=== PATIENT | male | born 1950 | race Caucasian/White ===

== ENCOUNTER 2018-03-22 09:03 | Observation (INO) | payer OTHER ==
[2018-03-21 15:19] LABS: BASOPHILS # (AUTO) 0.1 (0.0-0.1); BASOPHILS % 0.7 % (0.0-1.0); EOSINOPHILS # (AUTO) 0.1 (0.0-0.4); EOSINOPHILS % 0.9 % (0.0-6.0); HEMATOCRIT 47.2 % (38.2-49.6); HEMOGLOBIN 16.2 g/dL (14.0-18.0); LYMPHOCYTES # (AUTO) 1.6 (1.0-3.2); LYMPHOCYTES % 18.3 % (18.0-39.1); MEAN CORPUSCULAR HEMOGLOBIN 28.4 pg (28-32); MEAN CORPUSCULAR HGB CONC 34.3 g/dL (31-35); MEAN CORPUSCULAR VOLUME 82.8 fL (81-99); MONOCYTES # (AUTO) 0.7 (0.2-0.8); MONOCYTES % 8.2 % (4.4-11.3); NEUTROPHILS # (AUTO) 6.2 (2.1-6.9); NEUTROPHILS % 71.6 % (38.7-80.0); PLATELET COUNT 193 x10e3/uL (140-360); RED CELL DISTRIBUTION WIDTH 13.5 % (11.7-14.4)
[2018-03-21 15:29] LABS: INR 1.04; PROTHROMBIN TIME 12.8 seconds (11.9-14.5)
[2018-03-21 15:30] LABS: PARTIAL THROMBOPLASTIN TIME 26.4 seconds (23.8-35.5)
[2018-03-21 15:33] LABS: ANION GAP 11.5 mmol/L (8-16); CREATININE, SERUM 1.56 mg/dL (0.72-1.25); POTASSIUM 4.5 mmol/L (3.5-5.1)
[2018-03-22] VITALS (14 sets, daily range): BP systolic 112–151; BP diastolic 64–95
[~2018-03-22] VITALS: Ht 172.7 cm; Wt 83.9 kg
[~2018-03-22 09:03] MED LIST: ASPIRIN81 MG PO; ATORVASTATIN CA20 MG PO; CENTRUM SILVER1 EAC3 PO; COQ-10100 MG PO; DICYCLOMINE HCL10 MG PO; FLOMAX0.4 MG PO; JANUVIA100 MG PO; LANTUS100 UNITS/ SC; METFORMIN HCL500 M2 PO; METOPROLOL SUCC50 MG PO; METOPROLOL TART50 MG PO; PANTOPRAZOLE SO20 MG PO
[2018-03-22] MEDS ORDERED: LIDOCAINE HCL 2% LOCAL 20 ML VIAL ONE (13:47)
[2018-03-22] MEDS ORDERED: SODIUM CHLORIDE 0.9% 1000ML 1,000 ML ONE (13:48)
[2018-03-22] MEDS ORDERED: IOPAMIDOL 370 MG/ML 200 ML INFUS..BTL INJ ONE ×2 (13:48→14:53)
[2018-03-22] MEDS ORDERED: HEPARIN SOD/SOD CHLORIDE 2,000 ML ONE (13:48)
[2018-03-22] MEDS ORDERED: MIDAZOLAM HCL 2 MG/2 ML VIAL ONE ×2 (14:10→14:44)
[2018-03-22] MEDS ORDERED: FENTANYL CITRATE/PF 100MCG/2 ML INJ ONE (14:11)
[2018-03-22] MEDS ORDERED: HEPARIN SOD (PORCINE) 1000 UNIT/ML 30ML ONE (14:49)
[2018-03-22] MEDS ORDERED: NITROGLYCERIN/D5W 200 MCG/ML 250 ML ONE (14:49)
[2018-03-22] MEDS ORDERED: TICAGRELOR 90 MG TABLET PO ONE (15:15)
[2018-03-22] MEDS ORDERED: ACETAMINOPHEN 325 MG TAB PO PRN (16:30)
[2018-03-22] MEDS ORDERED: MORPHINE SULFATE 2 MG/ML SYR IV PRN (16:30)
[2018-03-22] MEDS ORDERED: NITROGLYCERIN 0.4 MG SUBL SL PRN (16:30)
[2018-03-22] MEDS ORDERED: MORPHINE SULFATE 4 MG/ML SYR IV PRN (16:30)
--- NOTE | 2018-03-22 17:22 | Operative Report ---
DATE OF PROCEDURE: March 22, 2018 PROCEDURES PERFORMED 1. Conscious sedation for 45 minutes. 2. Selective coronary angiography times 2. 3. Selective graft angiography times 3. 4. Left heart catheterization. 5. Closure of the right common femoral arteriotomy site with a Vascade device. PREPROCEDURE DIAGNOSES 1. 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 2. Presence of aortocoronary bypass 3. Chest pain. 4. Abnormal noninvasive stress test. POSTPROCEDURE DIAGNOSES 1. 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 2. Presence of aortocoronary bypass 3. Chest pain. 4. Abnormal noninvasive stress test. 5. Estimated blood loss 20 mL. SPECIMENS REMOVED: None. PROCEDURE IN DETAIL: After informed consent was obtained, the patient was brought to the cardiac catheterization laboratory in a fasting, nonsedated state. Bilateral groins were prepped and draped in the usual sterile fashion. The patient received conscious sedation with fentanyl and midazolam. Using a micropuncture needle, the right common femoral artery was accessed via the modified Seldinger technique, and a 5-St Helenian sheath was placed. Next, diagnostic coronary angiography was performed using 5-St Helenian JL4 and JR4 catheters. Next, selective graft angiography was performed using the same JR4 catheter times 3. Left heart catheterization was performed using a modified angled pigtail catheter. Diagnostic imaging revealed a significant 70% to 80% stenosis of the left circumflex coronary artery extending into the obtuse marginal vessel. The saphenous vein graft that had been anastomosed to this vessel was 100% occluded. Given his findings of lateral perfusion defect on the noninvasive workup stress testing, a decision was made to perform percutaneous coronary intervention. The patient received systemic heparin for therapeutic anticoagulation. Next, the sheath was exchanged for a 6-St Helenian system. Next, the left main was cannulated with a 5-St Helenian EBU 3.75 guide catheter. After confirmation of therapeutic activated clotting time, the lesions were crossed with a Runthrough wire and predilated with a 2.5 x 12 balloon. Next, the lesion was stented with a 3 x 38 [employer] Synergy drug-eluting stent. Next, the stent was postdilated with a 3.5 noncompliant balloon. Final angiography revealed excellent results with gross LITZY-3 flow distally. There was no evidence of dissection, distal embolization or vessel perforation at the end of the case. The patient tolerated the procedure well with no immediate complications. Next, a right lower extremity peripheral runoff was performed. Next, the sheath was removed, and the arteriotomy site was closed with a Vascade device with excellent hemostasis. The patient was then transported back to his room in stable condition. COMPLICATIONS: None. PROCEDURAL FINDINGS 1. Left main coronary artery is patent without significant coronary artery disease. 2. Left anterior descending coronary artery is 100% occluded proximally. The LAD itself is filled via a patent left internal mammary graft. 3. The ramus intermedius coronary artery is small in caliber with mild diffuse disease. 4. The left circumflex coronary artery has a proximal 70% to 80% flow-limiting stenosis and a 70% distal stenosis. There is the obtuse marginal vessel that has a superior branch which is subtotally occluded. The LAD fills the subtotally occluded superior OM branch via collaterals. 5. The right coronary artery has a severe 80% proximal stenosis and is 100% occluded in its mid portion. This vessel was filled via patent flow from the saphenous vein graft. 6. There is 1 saphenous vein graft with anastomosis to the distal RCA which is patent. 7. The saphenous vein graft that had been anastomosed to the obtuse marginal system was 100% occluded. 8. The left internal mammary artery graft is patent. 9. The left ventricular end-diastolic pressure is 7 mmHg with no aortic valve gradient upon pullback. INTERVENTIONAL RESULTS: Successful percutaneous coronary intervention of the left circumflex coronary artery. Pre-PCI LITZY flow was 2. Post-PCI LITZY flow was 3. Postprocedure stenosis less than 10%. IMPRESSION AND PLAN: This 67-year-old man with severe king salmon vessel coronary artery disease was found to have an occluded saphenous vein graft to the left circumflex obtuse marginal system. The patient is now status post successful revascularization. The patient will remain on dual antiplatelet therapy and received guideline-directed medical therapy for his coronary artery disease. Job#: [id number]
[2018-03-23 00:50] VITALS: BP 138/74
[2018-03-23 04:00] VITALS: BP 148/70
[2018-03-23 05:28] VITALS: BP 148/70
[2018-03-23 06:50] LABS: BASOPHILS # (AUTO) 0.1 (0.0-0.1); BASOPHILS % 0.7 % (0.0-1.0); EOSINOPHILS # (AUTO) 0.1 (0.0-0.4); EOSINOPHILS % 1.2 % (0.0-6.0); HEMATOCRIT 44.2 % (38.2-49.6); HEMOGLOBIN 15.2 g/dL (14.0-18.0); LYMPHOCYTES # (AUTO) 1.1 (1.0-3.2); LYMPHOCYTES % 13.9 % (18.0-39.1); MEAN CORPUSCULAR HEMOGLOBIN 28.5 pg (28-32); MEAN CORPUSCULAR HGB CONC 34.4 g/dL (31-35); MEAN CORPUSCULAR VOLUME 82.8 fL (81-99); MONOCYTES # (AUTO) 0.8 (0.2-0.8); MONOCYTES % 9.8 % (4.4-11.3); NEUTROPHILS # (AUTO) 5.7 (2.1-6.9); PLATELET COUNT 164 x10e3/uL (140-360); RED BLOOD COUNT 5.34 x10e6/uL (4.3-5.7); RED CELL DISTRIBUTION WIDTH 13.6 % (11.7-14.4)
[2018-03-23 07:23] LABS: CREATININE, SERUM 1.32 mg/dL (0.72-1.25)
[2018-03-23] MEDS ORDERED: PANTOPRAZOLE SOD 40 MG TABEC PO SCH (07:30)
[2018-03-23 07:39] VITALS: BP 175/85
[2018-03-23] MEDS ORDERED: ASPIRIN 81 MG CHEW TAB PO SCH (09:00)
[2018-03-23] MEDS ORDERED: DICYCLOMINE HCL 10 MG CAP PO SCH (09:00)
[2018-03-23] MEDS ORDERED: MULTIVITAMINS/MINERALS TAB PO SCH (09:00)
[2018-03-23] MEDS ORDERED: METOPROLOL SUCCINATE 50 MG TAB XL PO SCH (09:00)
[2018-03-23] MEDS ORDERED: SITAGLIPTIN 100 MG TAB PO SCH (09:00)
[2018-03-23] MEDS ORDERED: TAMSULOSIN HCL 0.4 MG CAP PO SCH (09:00)
[2018-03-23] MEDS ORDERED: ATORVASTATIN 40 MG TAB PO SCH (21:00)
[2018-03-23] MEDS ORDERED: INSULIN DETEMIR 100 UNIT/ML PEN SQ SCH (21:00)
== END 2018-03-23 09:04 | disposition home or self-care (01) ==
LOC: CATH LAB 09:03 → IMCU 16:43
PROVIDERS: ADMIT Internal Medicine Cardiovascular Disease; ATTEND Internal Medicine Cardiovascular Disease
DX: I25.718 Atherosclerosis of autologous vein coronary artery bypass graft(s) with other forms of angina pectoris (principal); I25.118 Atherosclerotic heart disease of native coronary artery with other forms of angina pectoris; I25.82 Chronic total occlusion of coronary artery; Z98.61 Coronary angioplasty status; R94.39 Abnormal result of other cardiovascular function study; I10 Essential (primary) hypertension; E11.59 Type 2 diabetes mellitus with other circulatory complications; Z79.4 Long term (current) use of insulin; E78.2 Mixed hyperlipidemia; I35.0 Nonrheumatic aortic (valve) stenosis; Z87.891 Personal history of nicotine dependence; Z79.82 Long term (current) use of aspirin; Z88.8 Allergy status to other drugs, medicaments and biological substances
CPT/HCPCS: 36415 ×3; 80048; 82565; 82948 ×2; 84520; 85025 ×2; 85610; 85730; 92943; 93005 ×2; 93459; C1725; C1760; C1769; C1874; G0378 ×2; J1644; J2001; J2250; J7030; Q9967; S0164; 36140; 75710; 77002; 92920; C9600

== ENCOUNTER 2019-01-26 13:49 | Observation (INO) | payer BC ==
[2019-01-25 12:02] LABS: BASOPHILS # (AUTO) 0.1 (0.0-0.1); BASOPHILS % 0.6 % (0.0-1.0); EOSINOPHILS % 0.5 % (0.0-6.0); HEMATOCRIT 45.5 % (38.2-49.6); HEMOGLOBIN 15.4 g/dL (14.0-18.0); LYMPHOCYTES # (AUTO) 1.2 (1.0-3.2); LYMPHOCYTES % 14.1 % (18.0-39.1); MEAN CORPUSCULAR HEMOGLOBIN 28.6 pg (28-32); MEAN CORPUSCULAR HGB CONC 33.8 g/dL (31-35); MEAN CORPUSCULAR VOLUME 84.6 fL (81-99); MONOCYTES # (AUTO) 0.7 (0.2-0.8); MONOCYTES % 7.7 % (4.4-11.3); NEUTROPHILS # (AUTO) 6.6 (2.1-6.9); NEUTROPHILS % 76.8 % (38.7-80.0); PLATELET COUNT 193 x10e3/uL (140-360); RED BLOOD COUNT 5.38 x10e6/uL (4.3-5.7); RED CELL DISTRIBUTION WIDTH 13.6 % (11.7-14.4)
[2019-01-25 12:14] LABS: INR 0.96; PROTHROMBIN TIME 13.3 seconds (11.9-14.5)
[2019-01-25 12:23] LABS: ALBUMIN 4.2 g/dL (3.5-5.0); ALBUMIN/GLOBULIN RATIO 1.6 (0.8-2.0); ANION GAP 11.3 mmol/L (8-16); CALCIUM 9.5 mg/dL (8.4-10.2); CREATININE, SERUM 1.33 mg/dL (0.72-1.25); POTASSIUM 4.3 mmol/L (3.5-5.1)
[~2019-01-26] VITALS: Ht 172.7 cm; Wt 80.7 kg
[~2019-01-26 13:49] MED LIST changes: +BRILINTA90 MG PO; +DIOVAN80 MG PO
--- NOTE | 2019-01-26 14:15 | NUR ---
1415 Received to crime lab analyst pre-op room 7. Alert and oriented x3, PERRLA, respirations even and unlabored, room air. Chance. PT/DP pulses present via doppler and marked. Cap fill brisk < 3 sec. VSS, denies pain, dysphonia noted on arrival to hospital. 20g IV started left forearm, samantha. well. FSBS 142. See pre-op note.
[2019-01-26 14:25] VITALS: BP 159/79
[2019-01-26] MEDS ORDERED: HEPARIN SOD/SOD CHLORIDE 2,000 ML ONE (16:10)
[2019-01-26] MEDS ORDERED: FENTANYL CITRATE/PF 100MCG/2 ML INJ ONE (16:10)
[2019-01-26] MEDS ORDERED: MIDAZOLAM HCL 2 MG/2 ML VIAL ONE ×2 (16:10→16:52)
[2019-01-26] MEDS ORDERED: LIDOCAINE HCL 2% LOCAL 20 ML VIAL ONE (16:10)
[2019-01-26] MEDS ORDERED: SODIUM CHLORIDE 0.9% 1000ML 1,000 ML ONE (16:11)
[2019-01-26] MEDS ORDERED: IOPAMIDOL 300MG/ML 100 ML INFUS..BTL IV ONE (16:11)
[2019-01-26] MEDS ORDERED: SODIUM CHLORIDE 0.9% 1000ML 1,000 ML IV SCH (19:30)
--- NOTE | 2019-01-26 19:40 | NUR ---
Report provided to Blair BORDEN, review of procedural findings and medications given. Patient awake and appropriate. maintains airway and room air saturations of 99-100%. No gross issues of pressure, pain, pallor or dysrhythmia. pedal pulses doppler strong x4 .IV site patent with NS 0.9% at 100ml/hr by dial-flow. patient hemodynamically stable with hemostasis left groin dressing CDI w/o s/s of bleeding. patient transferred to [facility] w/o [facility] at bedside. Blair/Cheikh performed left groin check on handoff. procedure: peripheral angio with PTCA to right AT/DP trunk Sheath puller: Megan RTr vascade deployment Meds Given Intra-Procedure Sedatives Versed - 3 mg Fentanyl - 100 mcg Anticoagulants Heparin - 8000 Units Fluids Input - 400 ml Output - 300ml Contrast Isovue 300 - 220ml Other Meds Nitro IA by
[2019-01-26 19:55] VITALS: BP 129/69
[2019-01-26 19:56] VITALS: BP 159/79
--- NOTE | 2019-02-16 00:09 | Operative Report ---
DATE OF PROCEDURE: 01/26/2019 SURGEON: Adams Cook DO PROCEDURES PERFORMED: 1. Conscious sedation 90 minutes. 2. Abdominal aortography. 3. Third-order peripheral angiography of the right lower extremity. 4. Secondary thrombectomy of the right lower extremity. 5. Percutaneous transluminal angioplasty of the peroneal artery of the right lower extremity. 6. Percutaneous transluminal angioplasty of the right anterior tibial artery. PREPROCEDURE DIAGNOSIS: Severe peripheral arterial disease with claudication. POSTPROCEDURE DIAGNOSIS: Severe peripheral arterial disease with claudication. ESTIMATED BLOOD LOSS: Less than 20 mL. SPECIMENS REMOVED: None. PROCEDURE IN DETAIL: After informed consent was obtained, the patient was brought to the cardiac catheterization laboratory in a fasting and nonsedated state. Bilateral groins were prepped and draped in the usual sterile fashion. A 2% lidocaine was entered over the left anterior groin for local anesthesia. Using micropuncture needle, right common femoral artery was accessed via the modified Seldinger technique and a 5-Czech sheath was placed. Next, diagnostic abdominal aortography was performed using Omni flush catheter. This was taken up and over the iliac bifurcation placement. Third order position and diagnostic angiography revealed significant disease in the right lower extremity. There was a 40% stenosis in the right superficial femoral artery, long diffuse 70% anterior tibial stenosis, and chronic total occlusions of the distal tibioperoneal trunk and the proximal portions of the peroneal and posterior tibial arteries. Decision was made to perform percutaneous intervention. The patient received systemic heparin for therapeutic anticoagulation. I crossed a 65 cm up-and-over sheath. Next, I crossed the anterior tibial artery with a Whisper wire and performed balloon angioplasty with a 2.25 x 220 mm balloon. Final angiography revealed excellent angioplasty results. Next with the backup support of device, I was able to cross into the peroneal vessel and performed balloon angioplasty with a 2.5 x 40 mm balloon. Multiple attempts were utilized to cross into the posterior tibial vessel without success. The sheath was exchanged for short sheath and closed with a Vascade device. The patient tolerated procedure well with no immediate complications. He was transported back to his room in stable condition. IMPRESSION AND PLAN: This is a 68-year-old gentleman, who has severe claudication of the right lower extremity, who was found to have severe triple vessel tibial disease. He underwent successful revascularization of the right anterior tibial and peroneal vessels. The patient will be brought back at a later time for pedal access and retrograde angioplasty of the posterior tibial artery. DO GHISLAINE Payne/MODL /[id number]
== END 2019-01-26 22:59 | disposition home or self-care (01) ==
LOC: CATH LAB 13:49 → IMCU 19:30
PROVIDERS: ADMIT Internal Medicine Cardiovascular Disease; ATTEND Internal Medicine Cardiovascular Disease
DX: I70.211 Atherosclerosis of native arteries of extremities with intermittent claudication, right leg (principal); I25.10 Atherosclerotic heart disease of native coronary artery without angina pectoris; Z95.1 Presence of aortocoronary bypass graft; I10 Essential (primary) hypertension; E78.2 Mixed hyperlipidemia; E11.9 Type 2 diabetes mellitus without complications; Z85.828 Personal history of other malignant neoplasm of skin; Z82.49 Family history of ischemic heart disease and other diseases of the circulatory system; Z83.3 Family history of diabetes mellitus; Z79.4 Long term (current) use of insulin
CPT/HCPCS: 36415 ×2; 37228; 37232; 75625; 75710; 80053; 82948; 85025; 85610; C1725 ×4; C1760; C1769 ×4; C1887 ×2; G0378; J2001; J2250; J7030; Q9967; 36247

== ENCOUNTER → 2019-03-01 | Day surgery (SDC) | payer BC ==
[2019-02-28 12:30] LABS: BASOPHILS # (AUTO) 0.1 (0.0-0.1); BASOPHILS % 0.6 % (0.0-1.0); EOSINOPHILS # (AUTO) 0.1 (0.0-0.4); HEMATOCRIT 43.7 % (38.2-49.6); HEMOGLOBIN 14.5 g/dL (14.0-18.0); LYMPHOCYTES # (AUTO) 0.9 (1.0-3.2); MEAN CORPUSCULAR HEMOGLOBIN 28.3 pg (28-32); MEAN CORPUSCULAR HGB CONC 33.2 g/dL (31-35); MEAN CORPUSCULAR VOLUME 85.4 fL (81-99); MONOCYTES # (AUTO) 0.6 (0.2-0.8); MONOCYTES % 7.7 % (4.4-11.3); NEUTROPHILS # (AUTO) 6.3 (2.1-6.9); NEUTROPHILS % 79.3 % (38.7-80.0); PLATELET COUNT 166 x10e3/uL (140-360); RED BLOOD COUNT 5.12 x10e6/uL (4.3-5.7); RED CELL DISTRIBUTION WIDTH 13.6 % (11.7-14.4)
[2019-02-28 12:44] LABS: INR 0.96; PROTHROMBIN TIME 13.3 seconds (11.9-14.5)
[2019-02-28 13:11] LABS: ALBUMIN/GLOBULIN RATIO 1.5 (0.8-2.0); ANION GAP 11.3 mmol/L (8-16); CREATININE, SERUM 1.28 mg/dL (0.72-1.25); POTASSIUM 4.3 mmol/L (3.5-5.1)
[~2019-03-01] VITALS: Ht 172.7 cm; Wt 83.5 kg
[2019-03-01] VITALS (10 sets, daily range): BP systolic 110–163; BP diastolic 43–77
[~2019-03-01] MED LIST changes: +FENTANYL CITRATE/PF 100MCG/2 ML INJ ONE; +HEPARIN SOD (PORCINE) 1000 UNIT/ML 30ML ONE; +HEPARIN SOD/SOD CHLORIDE 1,000 ML ONE; +HEPARIN SOD/SOD CHLORIDE 2,000 ML ONE; +IOPAMIDOL 300MG/ML 100 ML INFUS..BTL IV ONE; +LIDOCAINE HCL 2% LOCAL 20 ML VIAL ONE; +MIDAZOLAM HCL 2 MG/2 ML VIAL ONE; +NITROGLYCERIN/D5W 200 MCG/ML 250 ML ONE; +SODIUM CHLORIDE 0.9% 1000ML 1,000 ML ONE; +VERAPAMIL HCL 2.5 MG/ML 2 ML VIAL ONE
--- OUTSIDE RECORDS SUMMARY | 2019-03-01 06:21 | XMS REPORT ---
Author Author [facility] Address Unknown Phone Unavailable Care Team Providers Care Builder Beam Name Role Phone Unavailable Unavailable Payers Payer Name Policy Type Policy Number Effective Date Expiration Date Problems This patient has no known problems. Allergies, Adverse Reactions, Alerts Allergy Name Allergy Type Status Severity Reaction(s) Onset Date Inactive Date Treating Clinician Comments No Known Allergies DA Active U 2019-01-30 00:00:00 lisinopril DA Active U 2019-01-30 00:00:00 No Known Allergies DA Active U 2016-02-12 00:00:00 Medications This patient has no known medications. Results Test Description Test Time Test Comments Text Results Atomic Results Result Comments GLUBED 2019-02-01 12:42:00 GLUBED (test code=GLUBED) 185 mg/dL 74-106 Performed by certified flatbed press operator at [facility] [id number] 06:23:00* Test Item Value Reference Range Comments GLUBED (test code=GLUBED) 142 mg/dL 74-106 Performed by certified flatbed press operator at [facility] [id number] 06:23:00* Test Item Value Reference Range Comments GLUBED (test code=GLUBED) 131 mg/dL 74-106 Performed by certified flatbed press operator at [facility] BASIC METABOLIC [id number] 05:30:00* Test Item Value Reference Range Comments SODIUM (test code=NA) 144 mmol/L 136-145 POTASSIUM (test code=K) 4.0 mmol/L 3.5-5.1 CHLORIDE (test code=CL) 111.0 mmol/L 98-107 CARBON DIOXIDE (test code=CO2) 26.0 mmol/L 21-32 ANION GAP (test code=GAP) 11.0 10-20 GLUCOSE (test code=GLU) 137 mg/dL 74-106 BLOOD UREA NITROGEN (test code=BUN) 19 mg/dL 7-18 GLOMERULAR FILTRATION RATE (test code=GFR) > 60 mL/min >=60 Estimated GFR by using Modified MDRD formula.Chronic kidney disease is defined as either kidney damageor GFR <60 mL/min/1.73 m2 for >3 months. CREATININE (test code=CREAT) 1.00 mg/dL 0.7-1.3 BUN/CREATININE RATIO (test code=BUN/CREA) 19.0 10-20 CALCIUM (test code=CA) 8.1 mg/dL 8.5-10.1 CBC W/AUTO [id number] 05:21:00* Test Item Value Reference Range Comments WHITE BLOOD CELL (test code=WBC) 6.3 K/mm3 4.5-12.5 RED BLOOD CELL (test code=RBC) 4.61 mill/mm3 4.0-5.8 HEMOGLOBIN (test code=HGB) 13.0 gram/dL 13.0-17.5 HEMATOCRIT (test code=HCT) 39.2 % 42.0-52.0 MEAN CELL VOLUME (test code=MCV) 85.0 fL 80-98 MEAN CELL HGB (test code=MCH) 28.2 picogram 27.0-33.0 MEAN CELL HGB CONCETRATION (test code=MCHC) 33.2 gram/dL 33.0-36.0 RED CELL DISTRIBUTION WIDTH (test code=RDW) 13.6 % 11.6-16.2 RED CELL DISTRIBUTION WIDTH SD (test code=RDW-SD) 42.2 fL 37.0-51.0 PLATELET COUNT (test code=PLT) 143 K/mm3 150-450 MEAN PLATELET VOLUME (test code=MPV) 10.9 fL 6.7-11.0 NEUTROPHIL % (test code=NT%) 67.2 % 39.0-69.0 IMMATURE GRANULOCYTE % (test code=IG%) 0.3 % 0.0-5.0 LYMPHOCYTE % (test code=LY%) 19.6 % 25.0-55.0 MONOCYTE % (test code=MO%) 9.2 % 0.0-10.0 EOSINOPHIL % (test code=EO%) 2.9 % 0.0-5.0 BASOPHIL % (test code=BA%) 0.8 % 0.0-1.0 NUCLEATED RBC % (test code=NRBC%) 0.0 % 0-0 NEUTROPHIL # (test code=NT#) 4.23 K/mm3 1.8-7.7 IMMATURE GRANULOCYTE # (test code=IG#) 0.02 x10 3/uL 0-0.03 LYMPHOCYTE # (test code=LY#) 1.23 K/mm3 1.0-5.0 MONOCYTE # (test code=MO#) 0.58 K/mm3 0-0.8 EOSINOPHIL # (test code=EO#) 0.18 K/mm3 0.0-0.5 BASOPHIL # (test code=BA#) 0.05 K/mm3 0.0-0.2 NUCLEATED RBC # (test code=NRBC#) 0.00 K/mm3 0.0-0.1 CBC W/AUTO [id number] 05:18:00* Test Item Value Reference Range Comments WHITE BLOOD CELL (test code=WBC) K/mm3 4.5-12.5 RED BLOOD CELL (test code=RBC) mill/mm3 4.0-5.8 HEMOGLOBIN (test code=HGB) 13.0 gram/dL 13.0-17.5 HEMATOCRIT (test code=HCT) % 42.0-52.0 MEAN CELL VOLUME (test code=MCV) fL 80-98 MEAN CELL HGB (test code=MCH) picogram 27.0-33.0 MEAN CELL HGB CONCETRATION (test code=MCHC) gram/dL 33.0-36.0 RED CELL DISTRIBUTION WIDTH (test code=RDW) % 11.6-16.2 RED CELL DISTRIBUTION WIDTH SD (test code=RDW-SD) fL 37.0-51.0 PLATELET COUNT (test code=PLT) K/mm3 150-450 MEAN PLATELET VOLUME (test code=MPV) fL 6.7-11.0 NEUTROPHIL % (test code=NT%) % 39.0-69.0 IMMATURE GRANULOCYTE % (test code=IG%) % 0.0-5.0 LYMPHOCYTE % (test code=LY%) % 25.0-55.0 MONOCYTE % (test code=MO%) % 0.0-10.0 EOSINOPHIL % (test code=EO%) % 0.0-5.0 BASOPHIL % (test code=BA%) % 0.0-1.0 NEUTROPHIL # (test code=NT#) K/mm3 1.8-7.7 LYMPHOCYTE # (test code=LY#) K/mm3 1.0-5.0 MONOCYTE # (test code=MO#) K/mm3 0-0.8 EOSINOPHIL # (test code=EO#) K/mm3 0.0-0.5 BASOPHIL # (test code=BA#) K/mm3 0.0-0.2 THROMBOPLASTIN TIME [id number] 22:34:00* Test Item Value Reference Range Comments THROMBOPLASTIN TIME PARTIAL (test code=PTT) 26.1 seconds 25.0-36.5 IS PATIENT ON ANTICOAGULANTS? YLIST ANTICOAGULANTS HEPARINSPECIMEN COMMENTS: adjust heparin gtt with PTT per [id number] 21:58:00* Test Item Value Reference Range Comments GLUBED (test code=GLUBED) 142 mg/dL 74-106 Performed by certified flatbed press operator at [facility] THROMBOPLASTIN TIME [id number] 20:16:00* Test Item Value Reference Range Comments THROMBOPLASTIN TIME PARTIAL (test code=PTT) 29.9 seconds 25.0-36.5 1226IS PATIENT ON ANTICOAGULANTS? YLIST ANTICOAGULANTS HEPARINSPECIMEN COMME NTS: adjust heparin gtt with PTT per [id number] 18:30:00* Test Item Value Reference Range Comments GLUBED (test code=GLUBED) 201 mg/dL 74-106 Performed by certified flatbed press operator at [facility] COAGULATION TIME [id number] 16:07:00* Test Item Value Reference Range Comments COAGULATION TIME ACTIVATED (test code=ACT) 114 seconds 62.8-88.0 [id number] 13:41:00* Test Item Value Reference Range Comments GLUBED (test code=GLUBED) 168 mg/dL 74-106 Performed by certified flatbed press operator at [facility] THROMBOPLASTIN TIME [id number] 09:42:00* Test Item Value Reference Range Comments THROMBOPLASTIN TIME PARTIAL (test code=PTT) 147.0 seconds 25.0-36.5 Results called to GAYLE by DELMER 01/31/19 0942Critical results verified and read back by Nurse? Y IS PATIENT ON ANTICOAGULANTS? YLIST ANTICOAGULANTS [id number] 08:14:00* Test Item Value Reference Range Comments GLUBED (test code=GLUBED) 176 mg/dL 74-106 Performed by certified flatbed press operator at [facility] [id number] 07:59:00* Test Item Value Reference Range Comments TROPONIN-I (test code=TROPI) 0.100 ng/mL 0-0.045 COMMENTS TO SUPERINTENDENT [employer]: COLLECT 3 HOURS AFTER PREVIOUS [id number] 04:17:00* Test Item Value Reference Range Comments TROPONIN-I (test code=TROPI) 0.100 ng/mL 0-0.045 COMMENTS TO SUPERINTENDENT [employer]: COLLECT 3 HOURS AFTER PREVIOUS [id number] 04:17:00* Test Item Value Reference Range Comments GLYCOSYLATED HEMOGLOBIN (HA1C) (test code=GLYHGB) 7.3 % HbA1 4.8-6.0 ESTIMATED AVERAGE GLUCOSE (test code=EAG) 163 MG/DL BASIC METABOLIC [id number] 04:16:00* Test Item Value Reference Range Comments SODIUM (test code=NA) 141 mmol/L 136-145 POTASSIUM (test code=K) 3.7 mmol/L 3.5-5.1 CHLORIDE (test code=CL) 107.0 mmol/L 98-107 CARBON DIOXIDE (test code=CO2) 29.0 mmol/L 21-32 ANION GAP (test code=GAP) 8.7 10-20 GLUCOSE (test code=GLU) 157 mg/dL 74-106 BLOOD UREA NITROGEN (test code=BUN) 20 mg/dL 7-18 GLOMERULAR FILTRATION RATE (test code=GFR) 55 mL/min >=60 Estimated GFR by using Modified MDRD formula.Chronic kidney disease is defined as either kidney damageor GFR <60 mL/min/1.73 m2 for >3 months. CREATININE (test code=CREAT) 1.30 mg/dL 0.7-1.3 BUN/CREATININE RATIO (test code=BUN/CREA) 15.4 10-20 CALCIUM (test code=CA) 8.6 mg/dL 8.5-10.1 LIPID PROFILE (CORONARY RISK)2019-01-31 04:16:00* Test Item Value Reference Range Comments TRIGLYCERIDES (test code=TRIG) 47 mg/dL 20-150 CHOLESTEROL (test code=CHOL) 115 mg/dL 0-200 CHOLESTEROL/HDL RATIO (test code=CHOLHDL) 2.0 RATIO 0-4.9 RISK ASSOCIATED WITH CHOL/HDL RATIOS: Risk Male Female1/2 AVERAGE 3.43 3.27AVERAGE 4.97 4.442X AVERAGE 9.55 7.053X AVERAGE 23.39 11.04 REFERENCE VALUE IS RELATED TO RISK LEVELS ASRECOMMENDED BY THE TOR. HEART, LUNG, AND BLOOD INST. HDL CHOLESTEROL (test code=HDL) 41 mg/dL 40-60 LIPOPROTEIN LDL (test code=LDL) 71 mg/dL 100-129 Reference Interval: mg/dL mmol/L Optimal <100 <2.6Near/above optimal 100-129 2.6- 3.3Borderline High 130-159 3.4-4.1High 160-189 4.1-4.9Very High >=190 >=4.9=========This LDL result is a direct measurement.========= [id number] 04:16:00* Test Item Value Reference Range Comments PHOSPHORUS (test code=PHOS) 3.5 mg/dL 2.5-4.9 [id number] 04:16:00* Test Item Value Reference Range Comments MAGNESIUM (test code=MAG) 2.0 mg/dL 1.8-2.4 CALCIUM [id number] 04:16:00* Test Item Value Reference Range Comments CALCIUM IONIZED (test code=FABI) 1.16 mmol/L 1.12-1.32 BASIC METABOLIC [id number] 04:15:00* Test Item Value Reference Range Comments SODIUM (test code=NA) 141 mmol/L 136-145 POTASSIUM (test code=K) 3.7 mmol/L 3.5-5.1 CHLORIDE (test code=CL) 107.0 mmol/L 98-107 CARBON DIOXIDE (test code=CO2) mmol/L 21-32 ANION GAP (test code=GAP) 10-20 GLUCOSE (test code=GLU) mg/dL 74-106 BLOOD UREA NITROGEN (test code=BUN) mg/dL 7-18 GLOMERULAR FILTRATION RATE (test code=GFR) mL/min >=60 CREATININE (test code=CREAT) mg/dL 0.7-1.3 BUN/CREATININE RATIO (test code=BUN/CREA) 10-20 CALCIUM (test code=CA) mg/dL 8.5-10.1 LIPID PROFILE (CORONARY RISK)2019-01-31 04:15:00* Test Item Value Reference Range Comments TRIGLYCERIDES (test code=TRIG) mg/dL 20-150 CHOLESTEROL (test code=CHOL) mg/dL 0-200 CHOLESTEROL/HDL RATIO (test code=CHOLHDL) RATIO 0-4.9 HDL CHOLESTEROL (test code=HDL) mg/dL 40-60 LIPOPROTEIN LDL (test code=LDL) mg/dL 100-129 [id number] 04:15:00* Test Item Value Reference Range Comments PHOSPHORUS (test code=PHOS) mg/dL 2.5-4.9 [id number] 04:15:00* Test Item Value Reference Range Comments MAGNESIUM (test code=MAG) mg/dL 1.8-2.4 CALCIUM [id number] 04:15:00* Test Item Value Reference Range Comments CALCIUM IONIZED (test code=FABI) 1.16 mmol/L 1.12-1.32 BASIC METABOLIC [id number] 04:14:00* Test Item Value Reference Range Comments SODIUM (test code=NA) mmol/L 136-145 POTASSIUM (test code=K) mmol/L 3.5-5.1 CHLORIDE (test code=CL) mmol/L 98-107 CARBON DIOXIDE (test code=CO2) mmol/L 21-32 ANION GAP (test code=GAP) 10-20 GLUCOSE (test code=GLU) mg/dL 74-106 BLOOD UREA NITROGEN (test code=BUN) mg/dL 7-18 GLOMERULAR FILTRATION RATE (test code=GFR) mL/min >=60 CREATININE (test code=CREAT) mg/dL 0.7-1.3 BUN/CREATININE RATIO (test code=BUN/CREA) 10-20 CALCIUM (test code=CA) mg/dL 8.5-10.1 LIPID PROFILE (CORONARY RISK)2019-01-31 04:14:00* Test Item Value Reference Range Comments TRIGLYCERIDES (test code=TRIG) mg/dL 20-150 CHOLESTEROL (test code=CHOL) mg/dL 0-200 CHOLESTEROL/HDL RATIO (test code=CHOLHDL) RATIO 0-4.9 HDL CHOLESTEROL (test code=HDL) mg/dL 40-60 LIPOPROTEIN LDL (test code=LDL) mg/dL 100-129 [id number] 04:14:00* Test Item Value Reference Range Comments PHOSPHORUS (test code=PHOS) mg/dL 2.5-4.9 [id number] 04:14:00* Test Item Value Reference Range Comments MAGNESIUM (test code=MAG) mg/dL 1.8-2.4 CALCIUM [id number] 04:14:00* Test Item Value Reference Range Comments CALCIUM IONIZED (test code=FABI) 1.16 mmol/L 1.12-1.32 CBC W/AUTO [id number] 03:55:00* Test Item Value Reference Range Comments WHITE BLOOD CELL (test code=WBC) 7.0 K/mm3 4.5-12.5 RED BLOOD CELL (test code=RBC) 4.74 mill/mm3 4.0-5.8 HEMOGLOBIN (test code=HGB) 13.5 gram/dL 13.0-17.5 HEMATOCRIT (test code=HCT) 40.0 % 42.0-52.0 MEAN CELL VOLUME (test code=MCV) 84.4 fL 80-98 MEAN CELL HGB (test code=MCH) 28.5 picogram 27.0-33.0 MEAN CELL HGB CONCETRATION (test code=MCHC) 33.8 gram/dL 33.0-36.0 RED CELL DISTRIBUTION WIDTH (test code=RDW) 13.4 % 11.6-16.2 RED CELL DISTRIBUTION WIDTH SD (test code=RDW-SD) 41.3 fL 37.0-51.0 PLATELET COUNT (test code=PLT) 164 K/mm3 150-450 MEAN PLATELET VOLUME (test code=MPV) 11.1 fL 6.7-11.0 NEUTROPHIL % (test code=NT%) 66.7 % 39.0-69.0 IMMATURE GRANULOCYTE % (test code=IG%) 0.6 % 0.0-5.0 LYMPHOCYTE % (test code=LY%) 21.6 % 25.0-55.0 MONOCYTE % (test code=MO%) 7.8 % 0.0-10.0 EOSINOPHIL % (test code=EO%) 2.6 % 0.0-5.0 BASOPHIL % (test code=BA%) 0.7 % 0.0-1.0 NUCLEATED RBC % (test code=NRBC%) 0.0 % 0-0 NEUTROPHIL # (test code=NT#) 4.70 K/mm3 1.8-7.7 IMMATURE GRANULOCYTE # (test code=IG#) 0.04 x10 3/uL 0-0.03 LYMPHOCYTE # (test code=LY#) 1.52 K/mm3 1.0-5.0 MONOCYTE # (test code=MO#) 0.55 K/mm3 0-0.8 EOSINOPHIL # (test code=EO#) 0.18 K/mm3 0.0-0.5 BASOPHIL # (test code=BA#) 0.05 K/mm3 0.0-0.2 NUCLEATED RBC # (test code=NRBC#) 0.00 K/mm3 0.0-0.1 MANUAL DIFF REQUIRED (test code=MDIFF) NO CBC W/AUTO [id number] 03:52:00* Test Item Value Reference Range Comments WHITE BLOOD CELL (test code=WBC) K/mm3 4.5-12.5 RED BLOOD CELL (test code=RBC) mill/mm3 4.0-5.8 HEMOGLOBIN (test code=HGB) 13.5 gram/dL 13.0-17.5 HEMATOCRIT (test code=HCT) % 42.0-52.0 MEAN CELL VOLUME (test code=MCV) fL 80-98 MEAN CELL HGB (test code=MCH) picogram 27.0-33.0 MEAN CELL HGB CONCETRATION (test code=MCHC) gram/dL 33.0-36.0 RED CELL DISTRIBUTION WIDTH (test code=RDW) % 11.6-16.2 RED CELL DISTRIBUTION WIDTH SD (test code=RDW-SD) fL 37.0-51.0 PLATELET COUNT (test code=PLT) K/mm3 150-450 MEAN PLATELET VOLUME (test code=MPV) fL 6.7-11.0 NEUTROPHIL % (test code=NT%) % 39.0-69.0 IMMATURE GRANULOCYTE % (test code=IG%) % 0.0-5.0 LYMPHOCYTE % (test code=LY%) % 25.0-55.0 MONOCYTE % (test code=MO%) % 0.0-10.0 EOSINOPHIL % (test code=EO%) % 0.0-5.0 BASOPHIL % (test code=BA%) % 0.0-1.0 NEUTROPHIL # (test code=NT#) K/mm3 1.8-7.7 LYMPHOCYTE # (test code=LY#) K/mm3 1.0-5.0 MONOCYTE # (test code=MO#) K/mm3 0-0.8 EOSINOPHIL # (test code=EO#) K/mm3 0.0-0.5 BASOPHIL # (test code=BA#) K/mm3 0.0-0.2 PROTHROMBIN [id number] 23:42:00* Test Item Value Reference Range Comments PROTHROMBIN TIME PATIENT (test code=PTP) 11.6 seconds 9.0-14.0 INTERNATIONAL NORMAL RATIO (test code=INR) 1.0 0.8-1.2 The therapeutic range for oral anticoagulant therapy formost indications is an international normalized ratio (INR)of between 2.0 and 3.0. The recommended therapeutic INRrange for various clinical situations is listed below: Clinical Situation INR range Pulmonary e mbolism treatment (2.0-3.0)Venous thrombosis treatmentVenous thrombosis prophylaxis (high risk surgery)Prevention of systemic embolism from: Acute myocardial infarction Valvular heart disease Atrial fibrillation Mechanical prosthetic heart valves (2.5-3.5) IS PATIENT ON ANTICOAGULANTS? NTHROMBOPLASTIN TIME [id number] 23:42:00* Test Item Value Reference Range Comments THROMBOPLASTIN TIME PARTIAL (test code=PTT) 30.6 seconds 25.0-36.5 IS PATIENT ON ANTICOAGULANTS? NBASIC METABOLIC [id number] 22:02:00* Test Item Value Reference Range Comments SODIUM (test code=NA) 141 mmol/L 136-145 POTASSIUM (test code=K) 4.0 mmol/L 3.5-5.1 CHLORIDE (test code=CL) 105.0 mmol/L 98-107 CARBON DIOXIDE (test code=CO2) 31.0 mmol/L 21-32 ANION GAP (test code=GAP) 9.0 10-20 GLUCOSE (test code=GLU) 149 mg/dL 74-106 BLOOD UREA NITROGEN (test code=BUN) 21 mg/dL 7-18 GLOMERULAR FILTRATION RATE (test code=GFR) 47 mL/min >=60 Estimated GFR by using Modified MDRD formula.Chronic kidney disease is defined as either kidney damageor GFR <60 mL/min/1.73 m2 for >3 months. CREATININE (test code=CREAT) 1.50 mg/dL 0.7-1.3 BUN/CREATININE RATIO (test code=BUN/CREA) 14.0 10-20 CALCIUM (test code=CA) 8.8 mg/dL 8.5-10.1 [id number] 22:02:00* Test Item Value Reference Range Comments TROPONIN-I (test code=TROPI) 0.089 ng/mL 0-0.045 Results called to [id number] by V.LAB.SPR 01/30/19 2202Critical results verified and read back by Nurse? Y BASIC METABOLIC [id number] 21:54:00* Test Item Value Reference Range Comments SODIUM (test code=NA) 141 mmol/L 136-145 POTASSIUM (test code=K) 4.0 mmol/L 3.5-5.1 CHLORIDE (test code=CL) 105.0 mmol/L 98-107 CARBON DIOXIDE (test code=CO2) mmol/L 21-32 ANION GAP (test code=GAP) 10-20 GLUCOSE (test code=GLU) mg/dL 74-106 BLOOD UREA NITROGEN (test code=BUN) mg/dL 7-18 GLOMERULAR FILTRATION RATE (test code=GFR) mL/min >=60 CREATININE (test code=CREAT) mg/dL 0.7-1.3 BUN/CREATININE RATIO (test code=BUN/CREA) 10-20 CALCIUM (test code=CA) 8.8 mg/dL 8.5-10.1 [id number] 21:54:00* Test Item Value Reference Range Comments TROPONIN-I (test code=TROPI) ng/mL 0-0.045 - XR CHEST 1 [id number] 21:45:00 FAX: Roni Velazquez MD [phone] [place]: St: PRE Name: COLBY NO [facility] : [birth year] 54 Age/S: 68/M [address] [facility] Unit #: [id number] Loc: [place] [address] Phys: Roni Velazquez MD Acct: [id number] Dis Date: Status: PRE ER PHONE #: [phone] Exam Date: 01/30/20192141 FAX #: [phone] Reason: CHEST PAIN EXAMS: CPT CODE: [id number] XR CHEST 1 V 55615 HISTORY: CHEST PAIN TECHNIQUE: AP chest x-ray COMPARISON: 08/03/15 FINDIN GS: No airspace consolidation or pleural effusion. Normal heart si ze. Mediastinal silhouette is unremarkable. Mediastinal surgical clips. Thoracic spondylosis. Sternotomy wires. IMPRESSION: No acute findings or significant interval change. Electron ically Signed by Sandi Wolfe D.O. on 01/30/2019 at 1098 Re ported and signed by: Sandi Wolfe D.O. CC: Roni Velazquez MD Technologist: ARGENIS SANTOS Trnscrd Date/Time/By: 01/30/2019 (2144) : By: Ana Maria PalmerLDP1 Orig Print D/T: S: 01/30/2019 (2147) PAG E 1 Signed Report CBC W/O [id number] 21:41:00* Test Item Value Reference Range Comments WHITE BLOOD CELL (test code=WBC) 7.6 K/mm3 4.5-12.5 RED BLOOD CELL (test code=RBC) 5.17 mill/mm3 4.0-5.8 HEMOGLOBIN (test code=HGB) 14.1 gram/dL 13.0-17.5 HEMATOCRIT (test code=HCT) 44.7 % 42.0-52.0 MEAN CELL VOLUME (test code=MCV) 86.5 fL 80-98 MEAN CELL HGB (test code=MCH) 27.3 picogram 27.0-33.0 MEAN CELL HGB CONCETRATION (test code=MCHC) 31.5 gram/dL 33.0-36.0 RED CELL DISTRIBUTION WIDTH (test code=RDW) 13.4 % 11.6-16.2 PLATELET COUNT (test code=PLT) 172 K/mm3 150-450 MEAN PLATELET VOLUME (test code=MPV) 11.0 fL 6.7-11.0
--- NOTE | 2019-03-01 06:45 | NUR ---
Received to [employer] Supervisor pre-op room 9. Alert, oriented, and appropriate x3, PERRLA, respirations even and unlabored to room air. Chance. DP pulses equal and strong, Chance. PT pulses present via doppler and marked. Cap fill brisk < 3 sec. 20g S/L started to left hand by Diana Galloway RN. VSS, NSR, denies pain, no complaints, family at BS.
--- NOTE | 2019-03-01 10:32 | NUR ---
1032am Received pt in Rm #9 Identiferx2 Peripheral CSI failure rt ankle entry Left groin fix with MINX closure. per Dr Joyce Pike spoke with family. Respiration shallow and regular. 98% RA. Back to baseline orientation.Abdomen soft and non tender Denies necessity to defecate or urinate. Left iv set o.9NS at 50cchr. Site w/o s/s infiltration.For dc at 1430pm.Flat till then. Refusing po intake. POC and discharge planning discussed and family has copies of papers. Waffle mattress in place and explained operation and disposable unit. Aware one time use unit and welcome to discharge home with waffle . Instructed on use. ds/rn
--- NOTE | 2019-03-01 12:30 | NUR ---
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 Iv removed site healthy and removed w/o s/s infiltration coban dressing with 2x2 Denies Cp or SOB escorted per [facility] employee to private car by wc Back to baseline orientation voiding and tolerating po intake Vs stable ds/rn
--- NOTE | 2019-03-01 17:54 | Operative Report ---
DATE OF PROCEDURE: SURGEON: Adams Cook DO PROCEDURES PERFORMED: 1. Conscious sedation, 90 minutes. 2. Third-order peripheral angiography of the right lower extremity. 3. Atherectomy and percutaneous transluminal angioplasty of the right peroneal artery. PREPROCEDURE DIAGNOSIS: Atherosclerosis with claudication. POSTOPERATIVE DIAGNOSIS: Atherosclerosis with claudication. ESTIMATED BLOOD LOSS: Less than 20 mL. SPECIMENS REMOVED: None. PROCEDURE IN DETAIL: After informed consent was obtained, the patient was brought to the cardiac catheterization laboratory in a fasting and nonsedated state. Bilateral groins and right foot were prepped and draped in usual sterile fashion. A 2% lidocaine was infiltrated over the right foot for local anesthesia. Using ultrasound guidance, the right posterior tibial artery was attempted to be entered, however, was heavily calcified and 100% occluded and could not be entered from the pedal approach. Next, I gained access into the left common femoral artery and crossed a IM catheter up and over the iliac bifurcation and put in the right third-order peripheral angiography position and angiographic images were performed. This revealed heavily calcified 60% stenosis in the peroneal vessel at the takeoff of the posterior tibial. Next, I crossed this lesion with a Whisper wire, exchanged out over a microcatheter and performed orbital atherectomy with subsequent balloon angioplasty with a 3 mm balloon with excellent results. Next, I attempted to cross the posterior tibial vessel with multiple wires without success. The patient tolerated the procedure well with no immediate complications and the hemostasis was achieved via Mynx device. PROCEDURE FINDINGS: The right iliac, femoral, and popliteal vessels are patent. The tibioperoneal trunk is patent and there is a heavily calcified 60% stenosis in the peroneal vessel at the takeoff of the posterior tibial artery. 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 The anterior tibial artery is patent and fills the entire pedal arch and backfills the posterior tibial portion of the pedal arch. Adams Cook DO BM/MODL /[id number]
== END | disposition home or self-care (01) ==
LOC: CATH LAB 06:19
PROVIDERS: ATTEND Internal Medicine Cardiovascular Disease
DX: I70.211 Atherosclerosis of native arteries of extremities with intermittent claudication, right leg (principal); I25.810 Atherosclerosis of coronary artery bypass graft(s) without angina pectoris; I10 Essential (primary) hypertension; I25.2 Old myocardial infarction; E78.2 Mixed hyperlipidemia; E13.8 Other specified diabetes mellitus with unspecified complications; Z01.812 Encounter for preprocedural laboratory examination; Z79.4 Long term (current) use of insulin; Z79.82 Long term (current) use of aspirin; Z95.1 Presence of aortocoronary bypass graft; Z82.49 Family history of ischemic heart disease and other diseases of the circulatory system
CPT/HCPCS: 36415; 37229; 75710; 76937; 80053; 85025; 85610; C1724; C1725; C1760; C1769 ×2; J1644; J2001; J2250; J7030; Q9967; 36247; 37186; C1887

== ENCOUNTER → 2019-05-30 | Outpatient (CLI) | payer BC ==
[~2019-05-30] MED LIST changes: -FENTANYL CITRATE/PF 100MCG/2 ML INJ ONE; -HEPARIN SOD (PORCINE) 1000 UNIT/ML 30ML ONE; -HEPARIN SOD/SOD CHLORIDE 1,000 ML ONE; -HEPARIN SOD/SOD CHLORIDE 2,000 ML ONE; -IOPAMIDOL 300MG/ML 100 ML INFUS..BTL IV ONE; -LIDOCAINE HCL 2% LOCAL 20 ML VIAL ONE; -MIDAZOLAM HCL 2 MG/2 ML VIAL ONE; -NITROGLYCERIN/D5W 200 MCG/ML 250 ML ONE; -SODIUM CHLORIDE 0.9% 1000ML 1,000 ML ONE; -VERAPAMIL HCL 2.5 MG/ML 2 ML VIAL ONE
--- NOTE | 2019-05-30 14:25 | Diagnostic Imaging Report ---
EXAM: Focused Soft Tissue Ultrasound Evaluation of left lower leg INDICATION: ^[id number] ^[id number] ^SUBCUTANEOUS MASS LT LOWER LEG COMPARISON: None TECHNIQUE: Chaves scale, color Doppler images of the area of clinical interest in the left lower leg were obtained. FINDINGS: Focused sonographic evaluation of the subcutaneous tissues of the area of clinical interest in the left medial calf demonstrate small amount of subcutaneous soft tissue fluid and a nonenlarged lymph node. IMPRESSION: Small amount of fluid in the subcutaneous soft tissues. No focal mass. Signed by: Mara Ureña MD on 05/30/2019 2:22 PM
== END ==
LOC: US 12:21
PROVIDERS: ATTEND Family Medicine
DX: R22.42 Localized swelling, mass and lump, left lower limb (principal)
CPT/HCPCS: 76882

== ENCOUNTER 2019-10-12 09:13 | Emergency (ER) | payer BC ==
[~2019-10-12] VITALS: Ht 172.7 cm; Wt 83.5 kg
[2019-10-12 10:17] LABS: BASOPHILS % 0.6 % (0.0-1.0); EOSINOPHILS # (AUTO) 0.1 (0.0-0.4); EOSINOPHILS % 1.6 % (0.0-6.0); HEMATOCRIT 47.6 % (38.2-49.6); HEMOGLOBIN 16.2 g/dL (14.0-18.0); LYMPHOCYTES # (AUTO) 0.9 (1.0-3.2); LYMPHOCYTES % 13.6 % (18.0-39.1); MEAN CORPUSCULAR HEMOGLOBIN 28.9 pg (28-32); MONOCYTES # (AUTO) 0.6 (0.2-0.8); MONOCYTES % 8.9 % (4.4-11.3); NEUTROPHILS # (AUTO) 4.7 (2.1-6.9); NEUTROPHILS % 74.7 % (38.7-80.0); PLATELET COUNT 182 x10e3/uL (140-360); RED CELL DISTRIBUTION WIDTH 13.2 % (11.7-14.4)
[2019-10-12 10:41] LABS: ALANINE AMINOTRANSFERASE 44 IU/L (0-55); ALBUMIN 4.4 g/dL (3.5-5.0); ALBUMIN/GLOBULIN RATIO 1.7 (0.8-2.0); ALKALINE PHOSPHATASE 76 IU/L (40-150); ANION GAP 13.1 mmol/L (8-16); BLOOD UREA NITROGEN 15 mg/dL (7-26); BUN/CREATININE RATIO 11 (6-25); CALCIUM 9.7 mg/dL (8.4-10.2); CARBON DIOXIDE 30 mmol/L (22-29); CHLORIDE 102 mmol/L (98-107); CREATINE KINASE 272 IU/L (30-200); CREATININE, SERUM 1.37 mg/dL (0.72-1.25); EST GLOMERULAR FILTRATION RATE 52 ML/MIN (60-); GLUCOSE 95 mg/dL (74-118); POTASSIUM 4.1 mmol/L (3.5-5.1); SODIUM 141 mmol/L (136-145)
[2019-10-12] MEDS ORDERED: SODIUM CHLORIDE 0.9% 1000ML 1,000 ML IV SCH (11:00)
--- NOTE | 2019-10-12 11:19 | Diagnostic Imaging Report ---
EXAMINATION: Head CT HISTORY: Difficulty walking, lower extremity weakness today, diabetes, hypertension, CAD COMPARISON: None. TECHNIQUE: Multidetector axial images were obtained without contrast from the foramen magnum to the vertex . The images were reconstructed using brain and bone algorithms. Thin section brain images were reformatted into coronal and sagittal planes. Image quality: Motion/streaking artifact limits the evaluation of the skull base and posterior cranial fossa. Dose modulation, iterative reconstruction, and/or weight based adjustment of the mA/kV was utilized to reduce the radiation dose to as low as reasonably achievable. FINDINGS: Parenchyma: 1. A few scattered by matter hypodensities, most likely age-appropriate nonspecific minimal white matter chronic microvascular ischemic changes. 2. No mass or hemorrhage. No CT evidence of acute territorial vascular insult. Extra-axial spaces:No abnormal density. No extra-axial fluid collections Brain volume: Normal for age. Ventricles: No hydrocephalus or displacement. Arteries: No density suggestive of thrombus. Dural sinuses: No abnormal density. Extra-axial spaces: No abnormal density. Foramen magnum: No mass, Chiari malformation, or basilar invagination. Sella: No obvious mass. Paranasal/mastoid sinuses: Imaged portions unremarkable. Skull/Scalp: No lytic or blastic lesions. No fractures. IMPRESSION: 1. No acute intracranial hemorrhage or cortical infarct. 2. Mild white matter chronic microvascular ischemic changes. Signed by: Dr. Caitlin Leon M.D. on 10/12/2019 11:16 AM
== END 2019-10-12 13:45 | disposition home or self-care (01) ==
LOC: ER 09:13
DX: M79.662 Pain in left lower leg (principal); M79.661 Pain in right lower leg; R53.1 Weakness; R26.2 Difficulty in walking, not elsewhere classified
CPT/HCPCS: 36415; 70450; 80053; 82550; 82553; 84484; 85025; 93925; 93970; 99284; J7030

== ENCOUNTER → 2019-10-23 | Outpatient (CLI) | payer BC ==
--- NOTE | 2019-10-23 15:26 | Diagnostic Imaging Report ---
EXAM: US TESTICULAR DATE: 10/23/2019 2:24 PM INDICATION: Right testicular pain COMPARISON: None FINDINGS: The right testicle is normal in size. 3.8 x 2.1 x 3.2 cm. No focal intratesticular lesion is identified. Arterial and venous flow are preserved. There is no evidence for hyperemia. The right epididymis measures 1.4 x 0.6 x 0.7 cm. There is a small hydrocele present. No varicocele is appreciated. The left testicle normal in size measuring 3.1 x 2.1 x 2.9 cm. There is a single 1 mm echogenic focus identified within the left testicle likely representing a punctate calcification. No other focal intratesticular lesion is identified. Arterial and venous flow are preserved. There is no evidence for hyperemia. The left epididymis measures 1.0 x 0.6 x 0.9 cm. A small hydrocele is present. No varicocele is appreciated. IMPRESSION: Small bilateral hydroceles. Single punctate likely calcification identified within the left testicle. Otherwise, unremarkable testicular/orbital ultrasound examination. Signed by: Dr. Nathaniel Booth MD on 10/23/2019 3:23 PM
== END ==
LOC: US 14:18
PROVIDERS: ATTEND Family Medicine
DX: N50.811 Right testicular pain (principal)
CPT/HCPCS: 76870; 93976

== ENCOUNTER → 2020-11-27 | Day surgery (SDC) | payer MEDICARE, OTHER ==
[2020-11-24 12:47] LABS: BASOPHILS # (AUTO) 0.1 (0.0-0.1); BASOPHILS % 0.6 % (0.0-1.0); EOSINOPHILS # (AUTO) 0.1 (0.0-0.4); EOSINOPHILS % 1.5 % (0.0-6.0); HEMATOCRIT 47.5 % (38.2-49.6); HEMOGLOBIN 16.1 g/dL (14.0-18.0); LYMPHOCYTES # (AUTO) 1.2 (1.0-3.2); LYMPHOCYTES % 13.6 % (18.0-39.1); MEAN CORPUSCULAR HEMOGLOBIN 28.5 pg (28-32); MEAN CORPUSCULAR HGB CONC 33.9 g/dL (31-35); MEAN CORPUSCULAR VOLUME 84.2 fL (81-99); MONOCYTES # (AUTO) 0.6 (0.2-0.8); MONOCYTES % 6.9 % (4.4-11.3); NEUTROPHILS # (AUTO) 6.9 (2.1-6.9); PLATELET COUNT 170 x10e3/uL (140-360); RED BLOOD COUNT 5.64 x10e6/uL (4.3-5.7); RED CELL DISTRIBUTION WIDTH 13.5 % (11.7-14.4)
[2020-11-24 13:04] LABS: INR 0.96; PROTHROMBIN TIME 13.3 seconds (11.9-14.5)
[2020-11-24 13:05] LABS: PARTIAL THROMBOPLASTIN TIME 25.2 seconds (23.8-35.5)
[2020-11-24 13:15] LABS: ALBUMIN 4.3 g/dL (3.5-5.0); ALBUMIN/GLOBULIN RATIO 1.7 (0.8-2.0); ANION GAP 14.7 mmol/L (8-16); CALCIUM 9.1 mg/dL (8.4-10.2); CREATININE, SERUM 1.22 mg/dL (0.72-1.25); POTASSIUM 4.7 mmol/L (3.5-5.1)
[~2020-11-27] VITALS: Ht 172.7 cm; Wt 81.6 kg
[2020-11-27] VITALS (13 sets, daily range): BP systolic 95–156; BP diastolic 51–84
[~2020-11-27] MED LIST changes: +FENTANYL CITRATE/PF 100MCG/2 ML INJ ONE; +HEPARIN SOD (PORCINE) 1000 UNIT/ML 30ML ONE; +HEPARIN SOD/SOD CHLORIDE 2,000 ML ONE; +IOPAMIDOL 370 MG/ML 200 ML INFUS..BTL INJ ONE; +LIDOCAINE HCL 2% LOCAL 20 ML VIAL ONE; +MIDAZOLAM HCL 2 MG/2 ML VIAL ONE; +NITROGLYCERIN/D5W 200 MCG/ML 250 ML ONE; +PRESERVISION A1 EAC2 PO; +SODIUM CHLORIDE 0.9% 1000ML 1,000 ML ONE
== END | disposition home or self-care (01) ==
LOC: CATH LAB 06:19
PROVIDERS: ATTEND Internal Medicine Cardiovascular Disease
DX: I25.810 Atherosclerosis of coronary artery bypass graft(s) without angina pectoris (principal); I25.82 Chronic total occlusion of coronary artery; R94.39 Abnormal result of other cardiovascular function study; I82.493 Acute embolism and thrombosis of other specified deep vein of lower extremity, bilateral; I25.2 Old myocardial infarction; I73.9 Peripheral vascular disease, unspecified; I10 Essential (primary) hypertension; E78.2 Mixed hyperlipidemia; E13.8 Other specified diabetes mellitus with unspecified complications; Z01.812 Encounter for preprocedural laboratory examination; Z20.822 Contact with and (suspected) exposure to COVID-19; Z79.4 Long term (current) use of insulin; Z79.82 Long term (current) use of aspirin; Z95.1 Presence of aortocoronary bypass graft; Z95.5 Presence of coronary angioplasty implant and graft; Z82.49 Family history of ischemic heart disease and other diseases of the circulatory system; Z83.3 Family history of diabetes mellitus
CPT/HCPCS: 36415; 76937; 80053; 85025; 85610; 85730; 93459; J1644; J2001; J2250; J3010; J7030; Q9967; U0002; 99152

== ENCOUNTER → 2021-08-27 | Outpatient (CLI) | payer MEDICARE, OTHER ==
[~2021-08-27] MED LIST changes: +DIATRIZOATE MEGL/DIATRIZOA SOD 30 ML BTL PO ONE; -FENTANYL CITRATE/PF 100MCG/2 ML INJ ONE; -HEPARIN SOD (PORCINE) 1000 UNIT/ML 30ML ONE; -HEPARIN SOD/SOD CHLORIDE 2,000 ML ONE; -LIDOCAINE HCL 2% LOCAL 20 ML VIAL ONE; -MIDAZOLAM HCL 2 MG/2 ML VIAL ONE; -NITROGLYCERIN/D5W 200 MCG/ML 250 ML ONE; -SODIUM CHLORIDE 0.9% 1000ML 1,000 ML ONE; +SODIUM CHLORIDE 0.9% 50ML 50 ML ONE
[2021-08-27 13:57] LABS: CREATININE, SERUM 1.29 mg/dL (0.72-1.25)
== END ==
LOC: CT 13:17
PROVIDERS: ATTEND Family Medicine
DX: R10.2 Pelvic and perineal pain (principal); N40.1 Benign prostatic hyperplasia with lower urinary tract symptoms
CPT/HCPCS: 36415; 74177; 82565; 84520; Q9967

== ENCOUNTER → 2022-05-04 | Outpatient (CLI) | payer MEDICARE, OTHER ==
[~2022-05-04] MED LIST changes: -DIATRIZOATE MEGL/DIATRIZOA SOD 30 ML BTL PO ONE; -IOPAMIDOL 370 MG/ML 200 ML INFUS..BTL INJ ONE; -SODIUM CHLORIDE 0.9% 50ML 50 ML ONE
== END ==
LOC: US 07:26
PROVIDERS: ATTEND Internal Medicine Gastroenterology
DX: R10.11 Right upper quadrant pain (principal)
CPT/HCPCS: 76705; 78227; A9537

== ENCOUNTER 2022-12-24 17:05 | Observation (INO) | payer MEDICARE, OTHER ==
[~2022-12-24] VITALS: Ht 172.7 cm; Wt 83.9 kg
[~2022-12-24 17:05] MED LIST changes: +CENTRUM ADULTS1 EACH PO; +FINASTERIDE5 MG PO; +JANUVIA50 MG PO; +LANTUS 3ML100 UNITS/ SC; +LIPITOR10 MG PO; +METOPROLOL SUCC25 MG PO; +PANTOPRAZOLE SO40 MG PO
[2022-12-24 17:47] LABS: INR 0.96
[2022-12-24 17:53] LABS: BASOPHILS # (AUTO) 0.1 (0.0-0.1); BASOPHILS % 0.8 % (0.0-1.0); EOSINOPHILS % 0.5 % (0.0-6.0); HEMATOCRIT 46.3 % (38.2-49.6); HEMOGLOBIN 16.1 g/dL (14.0-18.0); LYMPHOCYTES # (AUTO) 0.9 (1.0-3.2); LYMPHOCYTES % 11.4 % (18.0-39.1); MEAN CORPUSCULAR HEMOGLOBIN 28.8 pg (28-32); MEAN CORPUSCULAR HGB CONC 34.8 g/dL (31-35); MEAN CORPUSCULAR VOLUME 82.8 fL (81-99); MONOCYTES # (AUTO) 0.5 (0.2-0.8); MONOCYTES % 6.9 % (4.4-11.3); NEUTROPHILS # (AUTO) 6.2 (2.1-6.9); NEUTROPHILS % 79.8 % (38.7-80.0); PLATELET COUNT 184 x10e3/uL (140-360); RED BLOOD COUNT 5.59 x10e6/uL (4.3-5.7); RED CELL DISTRIBUTION WIDTH 12.7 % (11.7-14.4)
[2022-12-24 17:59] LABS: CREATINE KINASE MB 4.5 ng/mL (0-5.0)
[2022-12-24] MEDS ORDERED: ASPIRIN 325 MG TAB PO ONE (18:15)
[2022-12-24] MEDS ORDERED: ONDANSETRON HCL INJ 2MG/ML 2ML 2 MG/ML VIAL IV PRN (18:30)
[2022-12-24] MEDS ORDERED: SODIUM CHLORIDE FLUSH 10 ML SYR INJ PRN (18:30)
[2022-12-24] MEDS ORDERED: ASPIRIN 81 MG CHEW TAB PO ONE (18:30)
[2022-12-24 20:00] VITALS: BP 187/75
[2022-12-24 21:44] VITALS: BP 134/81
[2022-12-24 21:52] VITALS: BP 177/81
[2022-12-24] MEDS ORDERED: HYDRALAZINE HCL 20 MG/ML VIAL IV PRN (22:15)
[2022-12-24] MEDS ORDERED: FINASTERIDE5 MG PO (22:20)
[2022-12-24] MEDS ORDERED: DICYCLOMINE HCL20 MG PO (22:31)
[2022-12-24] MEDS ORDERED: VSL#3 CAPSULE1 EACH (22:31)
[2022-12-24] MEDS ORDERED: CLOPIDOGREL75 MG PO (22:31)
[2022-12-24] MEDS ORDERED: LIALDA1.2 GM PO (22:31)
[2022-12-25] VITALS: BP 146/69
[2022-12-25 03:10] LABS: CREATINE KINASE MB 3.4 ng/mL (0-5.0)
[2022-12-25 04:00] VITALS: BP 134/64
[2022-12-25 08:10] VITALS: BP 143/61
[2022-12-25] MEDS ORDERED: ASPIRIN 81 MG ENTERIC COATED PO SCH (09:00)
[2022-12-25 09:08] VITALS: BP 143/61
[2022-12-25] MEDS ORDERED: CLOPIDOGREL BISULFATE 75 MG TAB PO SCH (09:45)
[2022-12-25] MEDS ORDERED: METOPROLOL SUCCINATE 50 MG TAB XL PO SCH (09:45)
[2022-12-25] MEDS ORDERED: FINASTERIDE 5 MG TAB PO SCH (09:45)
[2022-12-25] MEDS ORDERED: TAMSULOSIN HCL 0.4 MG CAP PO SCH (10:00)
[2022-12-25] MEDS ORDERED: VALSARTAN 80 MG TAB PO SCH (10:00)
[2022-12-25] MEDS ORDERED: PANTOPRAZOLE SOD 40 MG TABEC PO SCH (10:30)
[2022-12-25 10:39] LABS: CREATINE KINASE MB 3.1 ng/mL (0-5.0)
[2022-12-25] MEDS ORDERED: DEXTROSE 50% SYRINGE 50 ML IV PRN (12:45)
[2022-12-25] MEDS ORDERED: INSULIN REGULAR, HUMAN 100 UNIT/1 ML SQ SCH (13:00)
[2022-12-25] MEDS ORDERED: INSULIN GLARGINE 100 UNITS/ML VIAL SQ SCH (13:00)
[2022-12-25 13:33] VITALS: BP 172/83
[2022-12-25 15:54] VITALS: BP 178/76
[2022-12-25] MEDS ORDERED: ATORVASTATIN 20 MG TAB PO SCH (21:00)
== END 2022-12-25 16:44 | disposition home or self-care (01) ==
LOC: ER 17:16 → INTOOBSV 18:23 → ERHOLD 18:23 → MED/SURG3 22:45
PROVIDERS: ADMIT Internal Medicine; ATTEND Internal Medicine
DX: I25.10 Atherosclerotic heart disease of native coronary artery without angina pectoris (principal); E78.2 Mixed hyperlipidemia; E11.69 Type 2 diabetes mellitus with other specified complication; Z79.4 Long term (current) use of insulin; Z95.1 Presence of aortocoronary bypass graft; Z95.5 Presence of coronary angioplasty implant and graft; I25.810 Atherosclerosis of coronary artery bypass graft(s) without angina pectoris; Z20.822 Contact with and (suspected) exposure to COVID-19
CPT/HCPCS: 0223U; 36415 ×2; 71045; 82550 ×2; 82553 ×2; 82948 ×2; 84484 ×2; 85025; 85610; 93005; 99284; G0378 ×2; J0360; S0164

== ENCOUNTER 2025-07-18 19:57 | Emergency (ER) | payer MEDICARE, OTHER ==
[~2025-07-18] VITALS: Ht 172.7 cm; Wt 83.9 kg
[~2025-07-18 19:57] MED LIST changes: +CLOPIDOGREL75 MG PO; +DICYCLOMINE HCL20 MG PO; +LIALDA1.2 GM PO; +VSL#3 CAPSULE1 EACH
[2025-07-18 21:30] VITALS: PULSE 90; RESP 17; TEMP 97.9; O2SAT 99
== END 2025-07-18 21:50 | disposition short-term general hospital (02) ==
LOC: ER 21:50
DX: R23.3 Spontaneous ecchymoses (principal)